=== PATIENT | male | born 1985 | race Two or more races ===

== ENCOUNTER 2019-01-07 13:35 | Emergency (ER) | payer OTHER ==
[2019-01-07 14:06] VITALS: TEMP 98.1; BMI 59.9
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
[2019-01-07] MEDS ORDERED: SODIUM CHLORIDE 1,000 ML IV ONE (14:25)
[2019-01-07] MEDS ORDERED: ACETAMINOPHEN 1000 MG/100 ML VIAL (NON FORMULARY) IVPB ONE (14:27)
[2019-01-07] MEDS ORDERED: levETIRAcetam 500 MG/5 ML INJECTION VIAL IVPB ONE ×2 (14:44→14:52)
[2019-01-07] MEDS ORDERED: ACETAMINOPHEN INJECTION 100 ML IVPB ONE (14:48)
[2019-01-07 15:05] LABS: BASO % 0.7 % (0-2.0); EOS % 1.5 % (0-4.5); HEMATOCRIT 44.7 % (35.4-49); HEMOGLOBIN 14.8 GM/dL (11.7-16.9); LYMPH % 32.3 % (8-40); MCH 27.5 pg (25.7-33.7); MEAN CELL VOLUME 83.1 fl (80-96); MEAN PLT VOLUME 9.6 fl (7.5-11.1); MONO % 9.2 % (3.8-10.2); NEUT % 56.3 % (42.8-82.8); PLATELET COUNT 144 K/MM3 (134-434); RBC 5.38 M/mm3 (4.00-5.60); RDW 13.8 % (11.9-15.9); URINE APPEARANCE CLEAR; URINE BILIRUBIN NEGATIVE (NEGATIVE); URINE COLOR YELLOW; URINE GLUCOSE (UA) NEGATIVE (NEGATIVE); URINE KETONE NEGATIVE (NEGATIVE); URINE LEUK ESTERASE NEGATIVE (NEGATIVE); URINE NITRITE NEGATIVE (NEGATIVE); URINE PROTEIN NEGATIVE (NEGATIVE); URINE UROBILINOGEN 0.2 mg/dL (0.2-1.0); WHITE BLOOD COUNT 4.4 K/mm3 (4.0-10.0)
[2019-01-07 15:19] LABS: INR 1.03 (0.83-1.09); PROTHROMBIN TIME (PATIENT) 12.1 SEC (9.7-13.0)
[2019-01-07 15:42] LABS: ALBUMIN 3.9 g/dl (3.4-5.0); ALK PHOS 93 U/L (45-117); ANION GAP 4 MMOL/L (8-16); BILIRUBIN,TOTAL 0.4 mg/dL (0.2-1); BLOOD UREA NITROGEN 9 mg/dL (7-18); CALCIUM 8.5 mg/dL (8.5-10.1); CHLORIDE 108 mmol/L (98-107); CO2 28 mmol/L (21-32); CREATININE 1.1 mg/dL (0.55-1.3); GLUCOSE,RANDOM 77 mg/dL (74-106); POTASSIUM 4.5 mmol/L (3.5-5.1); SGOT/AST 16 U/L (15-37); SGPT/ALT 25 U/L (13-61); SODIUM 140 mmol/L (136-145); TOT PROT 7.1 g/dl (6.4-8.2)
[2019-01-07] MEDS ORDERED: VALPROATE SODIUM 500 MG/5 ML VIAL IVPB ONE (15:42)
[2019-01-07] MEDS ORDERED: VALPROATE SODIUM 500 MG/5 ML VIAL ONE (16:32)
--- NOTE | 2019-01-07 16:46 | PDOC ---
Documentation entered by Koby Funk SCRIBE, acting as scribe for Sun Casey MD. Sun Casey MD: This documentation has been prepared by the marisole, Koby Funk SCRIBE, under my direction and personally reviewed by me in its entirety. I confirm that the documentation accurately reflects all work, treatment, procedures, and medical decision making performed by me. Attending Attestation - Resident Resident Name: Sylvain Torres - ED Attending Attestation I have performed the following: I have examined & evaluated the patient, The case was reviewed & discussed with the resident, I agree w/resident's findings & plan, Exceptions are as noted - HPI HPI: 01/07/19 16:23 The patient is a 33 year old male with a significant past medical history of epilepsy (on keppra) and asthma who presents to the emergency department, via EMS, with 2 witnessed seizures earlier today. The patient states that his roommate witnessed his episodes but he does not remember the actual episode. He states that prior to his seizure episode he felt an auro by which he tasted iron in his mouth. The patient states that he knew that he was not feeling and that he collapsed, possibly hitting his head. He states that he experienced his a post-ictal episode for about 30 minutes prior to EMS arrival. He denies any bowel or urinary incontinence. The patient reports that he experienced a headache yesterday with associated blurry vision and eye tearing by which he took 2 aspirins because of the severity. On exam , the patient endorses a bad headache. - Physicial Exam PE: 01/07/19 17:04 awake alert lungs clear bilaterally hear rrrr no mrg abd soft nt nd. ext wwp nuero alert oriented x 3. strength 5/5 all four ext. CN II - XII intact. no appreciated nystagmus - Medical Decision Making 01/07/19 16:42 33 yo male h/o seizure disorder well controlled seizure last year, here with two seizures today. states he was smoking weed , then had siezure following. was self limited, lasting few minutes. was with room mate at the time. saw seizure and states pt hit his head. he had taken asa night prior for headache. did have n/v . does have h/o frequent headaches associated tearing and pain, but nausea and vomiting was new. no f/c no change to his medications. doesn't have a nuerologis tcurrently. keppra 1750 bid on exam pt normal nuerological. exam. symmetric strength. right ear louder . plan ct head due to atypical features of headache and nuero exam.will d/w dr cabrera, who states if workup negative can see pt in 24 - 48 hrs. labs r/o infection or electrolyte abnoramlities. tylenol for headache. tox scrren and iv hydration. 01/07/19 17:04 Heart Score/ECG Review #1 General ECG Interpretation: Sinus Rhythm, Normal Rate (50), Normal Intervals, No acute ischemic changes
[2019-01-07 16:49] LABS: COCAINE, UR NEGATIVE ng/ml (CUTOFF=300); METHADONE, UR NEGATIVE ng/ml (CUTOFF=300); OPIATES, URI NEGATIVE ng/ml (CUTOFF=300); PHENCYCLIDINE,URINE NEGATIVE ng/ml (CUTOFF=25); URINE AMPHETAMINES NEGATIVE ng/ml (CUTOFF=500); URINE BARBITURATES NEGATIVE ng/ml (CUTOFF=200); URINE BENZODIAZEPINES NEGATIVE ng/ml (CUTOFF=200)
[2019-01-07 19:21] VITALS: BP 126/69; PULSE 66
--- NOTE | 2019-01-08 12:08 | EKG ---
Test Reason : Blood Pressure : / mmHG Vent. Rate : 050 BPM Atrial Rate : 050 BPM P-R Int : 138 ms QRS Dur : 090 ms QT Int : 384 ms P-R-T Axes : 050 022 029 degrees QTc Int : 350 ms SINUS BRADYCARDIA LOW VOLTAGE QRS BORDERLINE ECG NO PREVIOUS ECGS AVAILABLE Confirmed by DORA NIEVES MD ([id number]) on 01/08/2019 12:08:49 PM Referred By: Confirmed By:DORA NIEVES MD
== END 2019-01-07 19:21 | disposition home or self-care (01) ==
LOC: JER 13:35
PROC: 3E033NZ Introduction of Analgesics, Hypnotics, Sedatives into Peripheral Vein, Percutaneous Approach (ICD-10-PCS; principal; 2019-01-07)
PROC: 3E033GC Introduction of Other Therapeutic Substance into Peripheral Vein, Percutaneous Approach (ICD-10-PCS; 2019-01-07)
PROC: 3E0337Z Introduction of Electrolytic and Water Balance Substance into Peripheral Vein, Percutaneous Approach (ICD-10-PCS; 2019-01-07)
DX: G40.909 Epilepsy, unspecified, not intractable, without status epilepticus (principal); J45.909 Unspecified asthma, uncomplicated
CPT/HCPCS: 36415; 70450-TC; 71046-TC-FY; 72125-TC; 80053; 80307; 81003; 82550; 82553; 83605; 84484; 85025; 85610; 86850; 86900; 86901; 93005; 93010; 99282-25; J0131; J7030